=== PATIENT | female | born 1950 | race Caucasian/White ===

== ENCOUNTER 2019-04-12 20:14 | Emergency (ER) | payer MEDICARE ==
[2019-04-12] MEDS ORDERED: Diphtheria,Pertussis(Acell),Tetanus Vaccine 0.5 ML SDV inactive IM ONE (20:44)
[2019-04-12] MEDS ORDERED: cefTRIAXone 1 GM Vial IM ONE (20:45)
[2019-04-12] MEDS ORDERED: Cephalexin 500 MG Cap ONE (20:45)
[2019-04-12] MEDS ORDERED: traMADol 50 MG Tab ONE (20:45)
--- NOTE | 2019-04-12 20:52 | EDM.PDOC ---
ED HPI GENERAL MEDICAL PROBLEM - General Chief Complaint: General Stated Complaint: L ANKLE PAIN Time Seen by Provider: 04/12/19 20:40 Source of Information: Reports: Patient, Family History Limitations: Reports: No Limitations - History of Present Illness INITIAL COMMENTS - FREE TEXT/NARRATIVE: This is a 69yo F here for a fall 1 week ago and injury of the left lower leg. She has open sores that have begun to weep and the swelling has not resolved since the injury. Per she was sleep walking and the cutler sores have improved but the ankle sores have started to weep today. He has been placing ointment on the sores daily. Onset: Gradual Duration: Week(s): Location: Reports: Lower Extremity, Left Severity: Mild Improves with: Reports: None Worsens with: Reports: None - Related Data Allergies Allergy/AdvReac Type Severity Reaction Status Date / Time No Known Allergies Allergy Verified 04/12/19 20:21 ED ROS GENERAL - Review of Systems Review Of Systems: ROS reveals no pertinent complaints other than HPI. ED EXAM, GENERAL - Physical Exam Exam: See Below Exam Limited By: No Limitations General Appearance: Alert, WD/WN, No Apparent Distress Ears: Normal External Exam Nose: Normal Inspection Throat/Mouth: Normal Inspection Head: Atraumatic, Normocephalic Neck: Normal Inspection Respiratory/Chest: No Respiratory Distress Cardiovascular: Normal Peripheral Pulses, Regular Rate, Rhythm Peripheral Pulses: 2+: Dorsalis Pedis (L), Dorsalis Pedis (R) Extremities: Leg Pain, Redness Neurological: Alert, Oriented Psychiatric: Normal Affect, Normal Mood Skin Exam: Ecchymosis, Erythema, Increased Warmth, Wound/Incision Course - Orders/Labs/Meds Orders: Active Orders 24 hr Category Date Time Status Vaccines to be Administered [RC] PER UNIT ROUTINE Care 04/12/19 20:44 Active Meds: Medications Discontinued Medications Generic Name Dose Route Start Last Admin Trade Name Freq PRN Reason Stop Dose Admin Ceftriaxone Sodium 1 gm 04/12/19 20:45 Rocephin IM 04/12/19 20:46 ONETIME ONE Diphtheria/Tetanus/Acell Pertussis 0.5 ml 04/12/19 20:44 Boostrix IM 04/12/19 20:45 .ONCE ONE Departure - Departure Time of Disposition: 20:55 Disposition: Home, Self-Care 01 Condition: Good Clinical Impression: Cellulitis and abscess of left leg - Discharge Information - Problem List & Annotations (1) Cellulitis and abscess of left leg SNOMED Code(s): 416862550 Code(s): L03.116 - CELLULITIS OF LEFT LOWER LIMB; L02.416 - CUTANEOUS ABSCESS OF LEFT LOWER LIMB Status: Acute - Problem List Review Problem List Initiated/Reviewed/Updated: Yes - My Orders Last 24 Hours: My Active Orders 04/12/19 20:44 Vaccines to be Administered [RC] PER UNIT ROUTINE - Assessment/Plan Last 24 Hours: My Active Orders 04/12/19 20:44 Vaccines to be Administered [RC] PER UNIT ROUTINE Plan: Counseled on antibiotics and side effects. Discussed IM injection and oral medications. Discussed and addressed Tetanus. Counseled on close monitoring and f/u in ER or clinic if symptoms persist. Discussed pain management and medications. F/u as directed and as needed.
== END 2019-04-12 20:49 | disposition home or self-care (01) ==
LOC: LB.ED 20:14
DX: L02.416 Cutaneous abscess of left lower limb (principal); L03.116 Cellulitis of left lower limb; Z23 Encounter for immunization
CPT/HCPCS: 90471; 90715; 96372; 99282; A9270; J0696; 99283